=== PATIENT | male | born 1945 | race Caucasian/White ===

== ENCOUNTER 2017-11-04 01:44 | Observation (INO) | payer BC, MEDICARE ==
[~2017-11-04] VITALS: Ht 185.4 cm; Wt 103.0 kg
[2017-11-04] VITALS (21 sets, daily range): BP systolic 113–153; BP diastolic 65–90
[~2017-11-04 01:44] MED LIST: APIX5TAB PO; ASPI-1471 PO; Areds 2 PO; CEPH-13 PO; CLOB15OI16 TP; DES5 PO; DEX4 PO; DILT120T13 PO; DIPH-1 PO; DOCU-416 PO; ESOM40CA42 PO; FLEC150T14 PO; GLUC-198 PO; HYDR-385 PO; HYDR100E16 RC; HYDR25SU51 RC; LEVO-85 PO; LOSA-51 PO; METH4TAB66 PO; MIDAZOLAM 2 MG/2 ML VIAL IVP PRN; MULT1CAP59 PO; MULT1TAB64 PO; OXA600 FT; OXA600 PO; OXYC-854 PO; OXYC-865 PO; RANI-318 PO; RIVA20TA PO; SILV20CR2 TP; SIMV-49 PO; TELM1TAB19 PO; TOLT4CAP13 PO; ZOLCR625PT PO
[2017-11-04] MEDS: NORMOSOL R SOLN(*) 1000 ML BAG 1,000 ML IV PRN ×2 (06:28→13:59)
[2017-11-04 06:32] LABS: PLATELET COUNT, AUTOMATED 182 K/uL (150-450)
[2017-11-04] MEDS ORDERED: LIDOCAINE/SOD BICARB 8.4% SYR ID ONE (06:45)
[2017-11-04] MEDS ORDERED: AMPICILLIN/SULBACT (*) 3 GM VL 3 GM in NS(*) 0.9% 100 ML BAG 100 ML IVPB ONE ×2 (06:45→07:05)
[2017-11-04] MEDS ORDERED: FAMOTIDINE 20 MG/50 ML PREMIX IVPB ONE ×2 (06:50→07:05)
[2017-11-04] MEDS ORDERED: ROPIVACAINE 0.5% 20 ML VIAL ONE ×2 (06:56→07:22)
[2017-11-04] MEDS ORDERED: GELATIN SPONGE SZ 100 ONE (06:56)
[2017-11-04] MEDS ORDERED: fentaNYL CITR 250 MCG/5 ML AMP ONE (07:16)
[2017-11-04] MEDS ORDERED: DEXAMETHASONE SOD PHOS 10MG/ML ONE (07:17)
[2017-11-04] MEDS ORDERED: PROPOFOL EMUL(*) 10MG/ML 20 ML 20 ML ONE (07:17)
[2017-11-04] MEDS ORDERED: ONDANSETRON 4 MG/2 ML VIAL ONE (07:17)
[2017-11-04] MEDS ORDERED: LIDOCAINE MPF 1% 5 ML VIAL ONE (07:17)
[2017-11-04] MEDS ORDERED: NS 0.9% 20 ML SDV 20 ML ONE (07:18)
[2017-11-04] MEDS ORDERED: HALOPERIDOL LACT 5 MG/ML VIAL IM ONE (07:26)
[2017-11-04] MEDS ORDERED: KETAMINE HCL 200 MG/20 ML MDV ONE (07:45)
[2017-11-04] MEDS ORDERED: LABETALOL HCL 100 MG/20ML VIAL ONE (07:45)
[2017-11-04] MEDS ORDERED: ROCURONIUM BROM 10 MG/ML 5 ML ONE (07:45)
[2017-11-04] MEDS ORDERED: SUGAMMADEX SOD 200 MG/2 ML SDV ONE (07:52)
[2017-11-04] MEDS ORDERED: fentaNYL CITR 100 MCG/2 ML AMP ONE ×5 (08:57→13:23)
[2017-11-04] MEDS ORDERED: HYDR-385 PO (11:44)
[2017-11-04] MEDS ORDERED: DOCU-416 PO (11:44)
--- NOTE | 2017-11-04 12:00 | Post Operative Progress Note ---
Post Operative Progress Note Date: Nov 04, 2017 Time: 11:47 Surgeon: Luci Dictation number: [id number] Anesthesia: GETA by Dr. Syed Pre-Op Diagnosis: 1) Ventral, port-site, hernia 2) Obstipation, diarrhea 3) Hemorrhoids Post-Op Diagnosis: BERNARDO Findings: C/W dx Procedure(s): 1) Proctoscopy 2) Excisional hemorrhoidectomy 3) Robotic Ventral Hernia repair with mesh Specimen Removed:(May be N/A): 1) Hemorrhoid Complications: None Fluids: See anesthesia record Estimated Blood Loss: Minimal Date OP Note Dictated: Nov 04, 2017 Time OP Note Dictated: 11:49 CHARLOTTE SCHILLING MD Nov 04, 2017 12:00
[2017-11-04] MEDS ORDERED: APAP/HYDROCODONE 325/5 TAB ONE (13:50)
--- NOTE | 2017-11-04 16:33 | Short(Outpt) Discharge Summary ---
CHARLOTTE SCHILLING MD 11/04/17 1148: Discharge Summary Reason for Hosp/Final Diag: (1) External hemorrhoid Status: Chronic Hospital Course & Plan: 11/04/17: Proctoscopy, excisional hemorrhoidectomy, and Robotic ventral (incisions/port-site) hernia repaired without problems. Pt with both abdominal and perianal pain with hypoxia in recovery so he was admitted for pulmonary hygiene and pain control. (2) Radiation proctitis Status: Chronic (3) Port-site hernia Status: Chronic Departure Discharge to: Home, Self Care Discharge Instructions Home Meds Active Scripts Docusate Sodium (COLACE) 100 Mg Capsule, 1 CAP PO BID, #30 CAP 0 Refills TAKE WITH A FULL GLASS OF WATER Prov:CHARLOTTE SCHILLING MD 11/04/17 Hydrocodone Bit/Acetaminophen (HYDROCODON-ACETAMINOPHEN 5-325) 1 Each Tablet, 1- 2 TAB PO Q4H Y for PAIN, #30 TAB 0 Refills Prov:CHARLOTTE SCHILLING MD 11/04/17 Reported Medications Glucosa Watson 2KCL/Chondroitin Watson (GLUCOSAMINE & CHONDROITIN CAP) 1 Each Capsule, 1 -2 EACH PO QDAY, CAPSULE Pt. takes 2 caps in AM and 1 cap HS 09/22/17 Multivitamin (MULTIVITAMINS) 1 Each Capsule, 1 EACH PO QDAY, CAPSULE 09/22/17 Oxaprozin (OXAPROZIN) 600 Mg Tab, 600 MG PO QDAY Y for prn, TAB 09/22/17 [Areds 2] No Conflict Check, 1 CAP PO BID 09/22/17 Ranitidine Hcl (RANITIDINE HCL) 150 Mg Tablet, 2 TAB PO QDAY 07/01/15 Zolpidem Tartrate (AMBIEN CR) 6.25 Mg Tab.mphase, 1 TAB PO QHS TAKE ONE TABLET BY MOUTH AT BED TIME 06/06/14 Simvastatin (SIMVASTATIN) 20 Mg Tablet, 20 MG PO QHS, TAB 06/06/14 Desloratadine (CLARINEX) 5 Mg Tab, 5 MG PO QDAY, TAB 06/06/14 Follow up Referrals: General Surgery - 11/26/17 @ Surgery, General with Charlotte Schilling Md You have a follow up appointment scheduled with Dr. Schilling on 11/26/17, at 9:30am. Diet: Regular Activity: No Heavy Lifting Special Instructions: You may remove the white surgical dressings on 11/06/17, then you can shower. After showering, leave the incisions open to air but leave the steristrips in place until they fall off on their own. Do not immerse the incisions for 2 weeks. Avoid any activities that involve straining or lifting more than 10 pounds for 6 weeks after surgery. OSCAR RIOS MD 11/05/17 0841: Discharge Summary Reason for Hosp/Final Diag: (1) Port-site hernia Status: Chronic Hospital Course & Plan: 11/05/17 doing well home today Departure Discharge to: Home Discharge Instructions Home Meds Active Scripts Docusate Sodium (COLACE) 100 Mg Capsule, 1 CAP PO BID, #30 CAP 0 Refills TAKE WITH A FULL GLASS OF WATER Prov:CHARLOTTE SCHILLING MD 11/04/17 Hydrocodone Bit/Acetaminophen (HYDROCODON-ACETAMINOPHEN 5-325) 1 Each Tablet, 1- 2 TAB PO Q4H Y for PAIN, #30 TAB 0 Refills Prov:CHARLOTTE SCHILLING MD 11/04/17 Reported Medications Glucosa Watson 2KCL/Chondroitin Watson (GLUCOSAMINE & CHONDROITIN CAP) 1 Each Capsule, 1 -2 EACH PO QDAY, CAPSULE Pt. takes 2 caps in AM and 1 cap HS 09/22/17 Multivitamin (MULTIVITAMINS) 1 Each Capsule, 1 EACH PO QDAY, CAPSULE 09/22/17 Oxaprozin (OXAPROZIN) 600 Mg Tab, 600 MG PO QDAY Y for prn, TAB 09/22/17 [Areds 2] No Conflict Check, 1 CAP PO BID 09/22/17 Ranitidine Hcl (RANITIDINE HCL) 150 Mg Tablet, 2 TAB PO QDAY 07/01/15 Zolpidem Tartrate (AMBIEN CR) 6.25 Mg Tab.mphase, 1 TAB PO QHS TAKE ONE TABLET BY MOUTH AT BED TIME 06/06/14 Simvastatin (SIMVASTATIN) 20 Mg Tablet, 20 MG PO QHS, TAB 06/06/14 Desloratadine (CLARINEX) 5 Mg Tab, 5 MG PO QDAY, TAB 06/06/14 Follow up Referrals: General Surgery - 11/26/17 @ Surgery, General with Charlotte Schilling Md You have a follow up appointment scheduled with Dr. Schilling on 11/26/17, at 9:30am. Diet: Regular Activity: No Heavy Lifting Special Instructions: remove bandage and shower tomorrow CHARLOTTE SCHILLING MD Nov 04, 2017 11:48 OSCAR RIOS MD Nov 05, 2017 08:41
[2017-11-04] MEDS ORDERED: NS(*) 0.9% 1000 ML BAG 1,000 ML IV PRN (16:34)
[2017-11-04] MEDS ORDERED: FLUSH 10 ML SYR IVP PRN (16:35)
[2017-11-04] MEDS ORDERED: MORPHINE 4 MG/ML SYR IVP PRN (16:35)
[2017-11-04] MEDS ORDERED: NALOXONE HCL 0.4 MG/ML VIAL IVP PRN (16:35)
[2017-11-04] MEDS ORDERED: OXAPROZIN 600 MG TAB PO PRN (16:35)
[2017-11-04] MEDS ORDERED: ONDANSETRON 4 MG/2 ML VIAL IVP PRN (16:35)
[2017-11-04] MEDS ORDERED: ERTAPENEM(*) 1 GM VIAL 1 GM in NS(*) 0.9% 100 ML ADDVANT BAG 100 ML IVPB ONE (17:30)
[2017-11-04] MEDS: APAP/HYDROCODONE 325/5 TAB PO PRN (20:14)
[2017-11-04] MEDS: FAMOTIDINE 20 MG TAB PO SCH (20:16)
[2017-11-04] MEDS: DOCUSATE SODIUM 100 MG CAP PO SCH (20:16)
[2017-11-04] MEDS ORDERED: ZOLPIDEM TARTRATE 5 MG TAB PO SCH (21:00)
--- NOTE | 2017-11-04 22:13 | OPERATIVE REPORT 1 ---
EVENT DATE: November 04, 2017 SURGEON: Alberto Verma MD ANESTHESIOLOGIST: Hoang Syed MD ANESTHESIA: General endotracheal anesthesia. PREOPERATIVE DIAGNOSES 1. Ventral (port site) hernia. 2. Obstipation and diarrhea. 3. Hemorrhoids. 4. History of pelvic irradiation for prostate cancer. POSTOPERATIVE DIAGNOSES 1. Ventral (port site) hernia. 2. Obstipation and diarrhea. 3. Hemorrhoids. 4. History of pelvic irradiation for prostate cancer. PROCEDURES PERFORMED 1. Proctoscopy. 2. Excisional hemorrhoidectomy. 3. Robotic ventral/incisional hernia repair with mesh. COMPLICATIONS None. CONDITION Stable. BLOOD LOSS Minimal. INDICATIONS This is a 72-year-old gentleman who presented to my office with complaints of having a hernia at a previous port side from his robotic prostatectomy which was performed a little over a year prior to his presentation to me. He was also complaining of frequent diarrhea and obstipation. We worked on his bowel regimen, and he was requesting that I look in his rectum to make sure everything looked fine, but he did not want a full colonoscopy. He also had some hemorrhoids that he wanted me to address as well. He consented for a hemorrhoidectomy, proctoscopy, as well as robotic ventral hernia repair. DESCRIPTION OF PROCEDURE The patient was brought to the operating room and placed supine on the operating table. General endotracheal anesthesia was administered, and he was placed in candy cane stirrups. His perineal region was prepped and draped in a sterile fashion. A timeout was completed. I inserted the proctoscope into his rectum and noticed some mild proctitis consistent with his previous history of radiation, but nothing severe. There were no masses, polyps, or other rectal abnormalities. Sphincter tone seemed to be good. Using the anal speculum, I isolated the hemorrhoid and anesthetized the skin around the hemorrhoid. I then used initially a scalpel to incise around the hemorrhoid and then electrocautery to separate the vessels from the sphincter muscle all the way up to the pedicle. I then used a 3-0 silk suture to suture ligate the vascular pedicle. The hemorrhoid was then amputated and passed off the field. There was a little skin tag that I easily removed with the scalpel. Then, there was an internal hemorrhoid on his left lateral side that I placed two rubber bands on. I then packed the anal canal with Gelfoam, then gauze was placed in his gluteal cleft, and he was placed in mesh panties. His legs were taken down out of the candy cane stirrups, and all of the dirty instruments were removed from the room. His abdomen was prepped and draped in a sterile fashion. I then scrubbed back in and anesthetized the skin in the right subcostal area in the mid clavicular line. I then made an 8 mm transverse incision and used the Veress needle with the insufflation hooked up and running. I passed the Veress needle through the fascial planes in the peritoneal cavity while watching the pressure as I went as confirmation I was in the peritoneal cavity as well as the tactile sensation of the Veress needle passing through the different layers. I insufflated the abdomen to a pressure of 15 mmHg and then used a zero -degree, 5 mm scope through a 5 mm optical trocar to access the insufflated peritoneal cavity without problems. I then placed two 8 mm robotic ports in the right lower quadrant and right mid abdomen and then switched out the right upper quadrant port for a robotic 8 mm port. Immediately visible were a couple of adhesions to the anterior abdominal wall which were easily taken down with hot scissors, and then I identified the fascia defect which was about 2 cm in diameter and then raised the peritoneum up on all sides of this for several centimeters. I then pulled the hernia sac out and divided it from the surrounding tissue. After this was completed, I closed the fascial defect with running V-Loc absorbable sutures in two passes, first going one way and then back the other way for good reinforcement. I then placed a 10 x 15 cm piece of C-QUR omega-3 coated Prolene mesh into the abdomen and then sewed it to the anterior abdominal wall with running V-Loc absorbable sutures so that the omega- 3 side was down to where any bowel would be exposed to the omega-3 side, not the Prolene side. I sewed it circumferentially all the way around, and then I placed another row of sutures around the middle to help it to adhere to the abdominal wall for tissue ingrowth. It laid nice and flat without tension, but there was no laxity or wrinkles in it either. I then placed the peritoneum and the hernia sac which I had set down on the omentum into a surgical specimen retrieval bag and removed it from the abdomen through the right mid abdominal port. I had to upsize the port to insert the mesh to a 12 mm port in the middle of the case. After this was all completed, I desufflated the abdomen and used the camera to identify the middle fascial defect and used the suture passer and passed an 0 Prolene suture in a [id number] fashion through this middle fascial defect since it was a 12 mm one. I tied this down with good reapproximation of the fascial edges, and it was airtight as no CO2 was escaping after this was done. I then desufflated the abdomen and removed the remaining ports. I then closed the skin at each port site with 4-0 Monocryl running subcuticular suture. The skin was cleaned and dried, and Steri-Strips were applied, followed by sterile surgical dressings. The patient was awakened and extubated in the operating room and transported to the recovery room in stable condition having tolerated the procedure without any apparent problems. MICHAEL
[2017-11-05 03:43] VITALS: BP 131/68
[2017-11-05] MEDS: APAP/HYDROCODONE 325/5 TAB PO PRN ×2 (03:54→08:08)
[2017-11-05 07:31] VITALS: BP 138/76
[2017-11-05] MEDS: FAMOTIDINE 20 MG TAB PO SCH (08:34)
[2017-11-05] MEDS: DOCUSATE SODIUM 100 MG CAP PO SCH (08:35)
[2017-11-05 08:37] VITALS: Ht 185.4 cm; Wt 103.0 kg
--- NOTE | 2017-11-05 08:40 | General Surgery Progress Note ---
Subjective Progress Notes Subjective no complaints, pain controlled, tolerating diet, up to void Physical Exam Vital Signs Date Time Temp Pulse Resp B/P (MAP) Pulse Ox O2 Delivery O2 Flow Rate FiO2 11/05/17 07:31 98.7 56 16 138/76 (96) 92 Room Air 11/04/17 23:57 1.0 Result Diagram: 11/04/17 0628 Assessment and Plan Problems: (1) External hemorrhoid Status: Chronic Assessment & Plan: 11/04/17: Proctoscopy, excisional hemorrhoidectomy, and Robotic ventral (incisions/port-site) hernia repaired without problems. Pt with both abdominal and perianal pain with hypoxia in recovery so he was admitted for pulmonary hygiene and pain control. 11/05/17 doing well, home today. (2) Radiation proctitis Status: Chronic (3) Port-site hernia Status: Chronic Exam Sepsis Risk: No Definite Risk OSCAR RIOS MD Nov 05, 2017 08:40
[2017-11-05] MEDS ORDERED: DESLORATADINE 5 MG PO SCH (09:00)
== END 2017-11-05 08:39 | disposition home or self-care (01) ==
LOC: OR 01:44 → MED 17:30
PROVIDERS: ADMIT Surgery; ATTEND Surgery
DX: K43.9 Ventral hernia without obstruction or gangrene (principal); K59.00 Constipation, unspecified; R19.7 Diarrhea, unspecified; Z85.46 Personal history of malignant neoplasm of prostate
CPT/HCPCS: 36415; 46255; 49654; 85025; 88304; 94667; C1781; G0378; J0295; J1100; J1335; J1630; J2001; J2405; J2704; J2795; J3010; J3490; J7030; J7050; S2900

== ENCOUNTER → 2017-11-16 | Outpatient (CLI) | payer BC, MEDICARE ==
[2017-11-05 08:37] VITALS: BMI 29.9
[~2017-11-16] MED LIST changes: -MIDAZOLAM 2 MG/2 ML VIAL IVP PRN
[2017-11-16 09:44] LABS: PLATELET COUNT, AUTOMATED 203 K/uL (150-450)
[2017-11-16 11:04] LABS: LDL CHOLESTEROL 100 mg/dl
== END ==
LOC: LAB 08:57
PROVIDERS: ATTEND Nurse Practitioner Family
DX: E03.8 Other specified hypothyroidism (principal); I10 Essential (primary) hypertension; I48.0 Paroxysmal atrial fibrillation; E55.9 Vitamin D deficiency, unspecified; D51.0 Vitamin B12 deficiency anemia due to intrinsic factor deficiency
CPT/HCPCS: 36415; 82040; 82247; 82306; 82310; 82374; 82435; 82465; 82565; 82607; 82947; 83718; 84075; 84132; 84155; 84295; 84443; 84450; 84460; 84478; 84520; 85025

== ENCOUNTER 2017-12-28 13:27 | Outpatient (RCR) | payer OTHER ==
[2017-11-05 08:37] VITALS: BMI 29.9
[2017-12-24 11:17] VITALS: BP 154/97
[2017-12-28] MEDS ORDERED: LOSA-51 PO (15:02)
== END 2017-12-30 14:48 | disposition home or self-care (01) ==
LOC: RAON 13:27
PROVIDERS: ATTEND Radiology Radiation Oncology
DX: Z85.46 Personal history of malignant neoplasm of prostate (principal); Z92.3 Personal history of irradiation; N52.9 Male erectile dysfunction, unspecified
CPT/HCPCS: 36415; 84153; 99213

== ENCOUNTER → 2018-05-05 | Outpatient (CLI) | payer BC, MEDICARE, OTHER ==
[2017-11-05 08:37] VITALS: BMI 29.9
[~2018-05-05] MED LIST changes: +GADOBENATE 529MG/1ML 15ML VIAL IVP ONE
--- NOTE | 2018-05-05 13:33 | RADIOLOGY IMAGING REPORT ---
FACILITY: [facility] PATIENT NAME: Ariel Sanches : 1945 MR: [id number] V: [id number] EXAM DATE: ORDERING PHYSICIAN: ARABELLA WHITE TECHNOLOGIST: Location: [facility] Patient: Ariel Sanches : 1945 Visit/Account:[id number] Date of Sevice: 05/05/2018 EXAMINATION: MRI lumbar spine without IV contrast MRI lumbar spine with IV contrast HISTORY: Fusion of spine lumbar region, low back pain, strain of muscle fascia and tendon of lower b ack. COMPARISON: Lumbar spine MRI from 09/25/2013. TECHNIQUE: Multi-planar, multi-sequence lumbar spine MRI was performed before and after IV contrast. CONTRAST: 15 mL of IV MultiHance gadolinium. FINDINGS: There is transitional lumbosacral anatomy with partial sacralization of L5 and a rudimentary disc at L5-S1. This is the same numbering system as used on previous MRI. Alignment: Normal. Vertebral marrow signal: There are a few small Schmorl's nodes and mild degenerative endplate changes anteriorly at T12-L1. Distal thoracic cord: Negative. Conus: negative, terminates at T12-L1. Cauda equina: Negative. Paravertebral soft tissues: Negative. Visualized abdominal and pelvic structures: Negative. Enhancement pattern: Negative. Disc spaces: Lower thoracic spine: Moderate disc space narrowing and desiccation at T12-L1 has progressed. There i s anterior and posterior bony spurring with a mild disc bulge eccentric to the left and bilateral fac et hypertrophy. There is a superimposed left paracentral disc extrusion with inferior extension, whic h is not included on the axial images. There is moderate left lateral recess stenosis which is unchan ged, and mild left foraminal stenosis, slightly worse. No significant central canal stenosis. L1-2: Mild disc space narrowing and desiccation with anterior bony spurring and a mild concentric dis c bulge. Bilateral facet hypertrophy. No significant central canal or foraminal stenosis, unchanged. L2-3: Bilateral L2 laminectomies and posterior lumbar interbody fusion hardware. Mild posterior bony spurring and facet hypertrophy without significant central canal or foraminal stenosis, unchanged. L3-4: Partial bilateral L3 laminectomies with posterior lumbar interbody fusion hardware. There is no residual central canal or foraminal stenosis, unchanged. L4-5: Bilateral L4 laminectomies with posterior lumbar interbody fusion hardware. There is mild poste rior bony spurring and facet hypertrophy without significant central canal or foraminal stenosis. L5-S1: Partial sacralization of L5 with a rudimentary disc. No significant central canal or foraminal stenosis, unchanged. IMPRESSION: 1. 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 This is the same numbering syst em as used on previous MRI. 2. Degenerative disc disease and facet arthropathy at T12-L1 has slightly progressed with moderate le ft lateral recess stenosis and mild left foraminal stenosis. Please see the findings for description of individual level disease. 2. Posterior decompression and posterior lumbar interbody fusion from L2 through L5. No residual spin al stenosis or foraminal stenosis at the fused levels. Report Dictated By: Lety Márquez MD at 05/05/2018 12:27 PM Report E-Signed By: Lety Márquez MD at 05/05/2018 1:30 PM WSN:[email or web address]
== END ==
LOC: MRI 07:12
PROVIDERS: ATTEND Preventive Medicine Occupational Medicine
DX: M51.36 Other intervertebral disc degeneration, lumbar region (principal); M48.07 Spinal stenosis, lumbosacral region
CPT/HCPCS: 72158; 82565; A9577; 36415

== ENCOUNTER → 2018-05-27 | Outpatient (CLI) | payer OTHER ==
[2017-11-05 08:37] VITALS: BMI 29.9
[~2018-05-27] MED LIST changes: -GADOBENATE 529MG/1ML 15ML VIAL IVP ONE
== END ==
LOC: LAB 09:38
PROVIDERS: ATTEND Urology
DX: C61 Malignant neoplasm of prostate (principal)
CPT/HCPCS: 36415; 84153

== ENCOUNTER 2018-06-27 13:26 | Outpatient (RCR) | payer OTHER ==
[2017-11-05 08:37] VITALS: BMI 29.9
[2017-12-24 11:17] VITALS: BP 154/97
[2018-06-28] MEDS ORDERED: ALEN70TA43 PO (14:46)
[2018-06-28] MEDS ORDERED: CALC-852 PO (14:47)
[2018-06-29] MEDS ORDERED: PHEN16.215 PO (11:48)
== END 2018-07-06 09:18 | disposition home or self-care (01) ==
LOC: RAON 13:26
PROVIDERS: ATTEND Radiology Radiation Oncology
DX: Z85.46 Personal history of malignant neoplasm of prostate (principal); Z92.3 Personal history of irradiation; I48.91 Unspecified atrial fibrillation; E78.00 Pure hypercholesterolemia, unspecified; Z79.899 Other long term (current) drug therapy; F17.210 Nicotine dependence, cigarettes, uncomplicated
CPT/HCPCS: 99212

== ENCOUNTER → 2018-11-10 | Outpatient (CLI) | payer BC, MEDICARE ==
[2017-11-05 08:37] VITALS: BMI 29.9
[~2018-11-10] MED LIST changes: +ALEN70TA43 PO; +CALC-852 PO; +PHEN16.215 PO
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
== END ==
LOC: US 00:32
PROVIDERS: ATTEND Family Medicine
DX: I70.213 Atherosclerosis of native arteries of extremities with intermittent claudication, bilateral legs (principal)
CPT/HCPCS: 93922

== ENCOUNTER → 2019-01-23 | Outpatient (CLI) | payer BC, MEDICARE ==
[2017-11-05 08:37] VITALS: BMI 29.9
[2019-01-23 09:47] LABS: PLATELET COUNT, AUTOMATED 155 K/uL (150-450)
[2019-01-23 10:33] LABS: LDL CHOLESTEROL 75 mg/dl
== END ==
LOC: LAB 09:16
PROVIDERS: ATTEND Nurse Practitioner Family
DX: Z12.5 Encounter for screening for malignant neoplasm of prostate (principal); E87.8 Other disorders of electrolyte and fluid balance, not elsewhere classified; E78.00 Pure hypercholesterolemia, unspecified; R53.81 Other malaise; E53.8 Deficiency of other specified B group vitamins; E55.9 Vitamin D deficiency, unspecified
CPT/HCPCS: 36415; 82040; 82247; 82306; 82310; 82374; 82435; 82465; 82565; 82607; 82947; 83718; 84075; 84132; 84153; 84155; 84295; 84443; 84450; 84460; 84478; 84520; 85025

== ENCOUNTER 2019-02-14 13:55 | Outpatient (RCR) | payer OTHER ==
[2017-11-05 08:37] VITALS: Wt 110.0 kg
--- NOTE | 2018-07-12 19:43 | TOBIN CONSULT ---
July 12, 2018 RE: Ariel Sanches Date of : 1945 To Whom It May Concern: I have been asked by the patient and his spouse to comment regarding his recent medical condition. 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 Cancer extended to the margins as well as perineural invasion, and he was felt to be at high risk for tumor spread locally and to regional lymph nodes. The patient then completed a full course of external beam radiotherapy to the prostate and regional lymph nodes with subsequent field reductions to the prostate bed from a time course of December 29, 2016, to March 01, 2017. The patient, fortunately, has a PSA of zero at this time. That said, he does have significant bowel issues which have not responded to multiple medication trials. The patient has bowel urgency and frequency. He will have multiple accidents due to poor bowel control throughout the week. This, unfortunately, is causing the patient to stay at home more than we would like. Despite a recent attempt at additional medication for bowel inflammation, there was no substantial response. I would comment that the patient is reliable. I would hope that you would take the above information in future determinations regarding the level of his disability and impairment. If you have additional questions, please do not hesitate to contact me. The patient also has urinary stress incontinence following his surgery in September 2016. These are all known complications of potentially curative therapy. MTDD
[2019-02-10 14:00] VITALS: BP 134/82
[2019-02-10 14:12] LABS: PLATELET COUNT, AUTOMATED 191 K/uL (150-450)
[2019-02-14] MEDS ORDERED: PREG50CA48 PO (14:21)
[2019-02-14] MEDS ORDERED: DES5 FT (14:21)
[2019-02-14] MEDS ORDERED: MONT10TA PO (14:21)
[2019-02-14] MEDS ORDERED: ZOLP6.2530 PO (14:21)
[2019-02-14] MEDS ORDERED: PRAV20TA65 PO (14:21)
[2019-02-14] MEDS ORDERED: METH454P5 PO (14:23)
[2019-02-14] MEDS ORDERED: OXYGENHOME INH (14:24)
[2019-02-14 14:30] VITALS: BP 127/66
== END 2019-03-13 15:41 | disposition home or self-care (01) ==
LOC: RAON 13:55
PROVIDERS: ATTEND Radiology Radiation Oncology
DX: C61 Malignant neoplasm of prostate (principal)
CPT/HCPCS: 36415; 82040; 82247; 82310; 82374; 82435; 82565; 82947; 84075; 84132; 84153; 84155; 84295; 84450; 84460; 84520; 85025; 99212